=== PATIENT | female | born 1975 | race Caucasian/White ===

== ENCOUNTER 2021-02-17 12:32 | Emergency (ER) | payer OTHER, SELFPAY ==
--- NOTE | 2021-02-17 12:39 | ED.URI ---
HPI - URI/Sore Throat General Chief Complaint: Upper Respiratory Infection Stated Complaint: Sore Throat Time Seen by Provider: 02/17/21 12:56 Source: patient and RN notes reviewed Mode of arrival: ambulatory Limitations: no limitations History of Present Illness HPI Narrative: 45-year-old female presents with concern for sore throat, body aches, chills, nasal congestion and rhinorrhea, ear pain. Reports she has been taking Tylenol with little relief. Reports exposure to Covid. MD elicited complaint: sore throat Related Data Home Medications Medication Instructions Recorded Confirmed dextroamphetamine-amphetamine 02/17/21 lorazepam 02/17/21 nitrofurantoin macrocrystal 02/17/21 zolpidem PO 02/17/21 Allergies Allergy/AdvReac Type Severity Reaction Status Date / Time Penicillins AdvReac Unknown VOMITING Verified 02/17/21 13:03 Review of Systems Review of Systems: CONSTITUTIONAL: Reports malaise, fatigue. Denies chills, sweats, or fever. EYES: Denies visual changes, redness, or discharge. ENT: Reports rhinorrhea, congestion, otalgia and sore throat. CARDIOVASCULAR: Denies chest pain, palpitations, or edema. RESPIRATORY: Denies cough. Denies dyspnea. GASTROINTESTINAL: Denies abdominal pain, nausea, vomiting, diarrhea SKIN: Denies rash or itching. MUSCULOSKELETAL: Reports myalgia. NEUROLOGIC: Denies headache. All systems reviewed & are unremarkable except as noted in HPI and below PMFSH Comments At time of signature, agree with nursing past medical, surgical, social and family history. There is no relevant family history pertinent to the presenting complaint Exam Narrative: GENERAL: Well-appearing, well-nourished, and in no acute distress. HEAD: Normocephalic EYES: PERRLA, conjunctivae clear. Bilateral sclera injected ENT: Nares clear, clear discharge. Mucous membranes moist. TM pearly kasper with dull light reflex bilaterally; no tragal tenderness. Oropharynx not erythematous without lesions. Tonsils not enlarged and without exudate, no drooling, no hoarseness, no trismus, uvula midline. NECK: Supple. No lymphadenopathy CHEST: Clear to auscultation, breath sounds equal. No wheezing, rhonchi, rales, or stridor. No respiratory distress, speaks in full sentences. HEART: Regular rate and rhythm. No murmur heard. SKIN: Warm, dry, no rash. NEURO: Alert and oriented x3. PSYCH: Normal mood and affect Course Course Emergency Course: Patient is aware of diagnosis, understands and agrees to treatment plan. Anticipatory guidance given. Patient agrees to follow-up as directed and is aware of reasons to seek care at the emergency department. Portions of this record may have been created with voice recognition software Vital Signs Vital signs: Reviewed. MDM - URI/Sore Throat MDM Narrative Medical decision making narrative: Differential diagnosis considered: Pineda virus, strep pharyngitis, allergic rhinitis, upper respiratory tract infection, sinusitis, rhinosinusitis, nasopharyngitis. viral pharyngitis, otitis media, otitis externa, pneumonia, bronchitis, viral cough syndrome, viral syndrome, and influenza. Exam findings show no acute concerns or changes; patient is non-toxic appearing and is in no distress. Patient is appropriate for outpatient treatment and follow-up. Lab Data Attestation: I reviewed the patient's lab results. Critical Care Time Critical Care Time Critical Care Time: No Discharge Plan Discharge Clinical Impression: Acute viral syndrome Patient Disposition: Home, Self-Care Condition: Stable Additional Instructions: Your rapid COVID test was negative, a PCR test is being sent to the lab. If you are symptomatic, there is a high possibility your rapid test may not have detected the virus. Your negative rapid test does not rule out Covid infection, please wait for the PCR results to confirm that. Continue to isolate, wear a mask, wash your hands. Your rapid influenza test is negative Your ra
[2021-02-17 12:41] VITALS: BP 126/95; PULSE 96; RESP 16; TEMP 37.9; O2SAT 99
[2021-02-18 16:52] LABS: SARS-CoV-2 RNA PCR Negative
== END 2021-02-17 13:20 | disposition home or self-care (01) ==
PROVIDERS: Emergency Provider Nurse Practitioner
DX: B34.9 Viral infection, unspecified (principal); Z20.822 Contact with and (suspected) exposure to COVID-19
CPT/HCPCS: 87081; 87426; 87804; 87880; 99213; C9803; G0463; U0003; U0005

== ENCOUNTER 2021-07-19 12:38 | Emergency (ER) | payer OTHER, SELFPAY ==
[2021-07-19 12:42] VITALS: BP 148/98; PULSE 102; RESP 20; TEMP 36.9; O2SAT 98
--- NOTE | 2021-07-19 13:01 | ED.URI ---
HPI - URI/Sore Throat General Chief Complaint: Upper Respiratory Infection Stated Complaint: Sore Throat Time Seen by Provider: 07/19/21 13:01 Source: patient and RN notes reviewed Mode of arrival: ambulatory Limitations: no limitations History of Present Illness HPI Narrative: 45-year-old female presents with concern for sore throat, headache, fatigue for 5 days. Reports occasional cough. Reports her daughter was diagnosed with mononucleosis 1-1/2 weeks ago. Reports she has been taking Tylenol. MD elicited complaint: cough and sore throat Related Data Home Medications Medication Instructions Recorded Confirmed lorazepam 1 mg tablet 1 mg PO HS 02/17/21 07/19/21 dextroamphetamine-amphetamine 20 1 tablet PO DAILY 07/19/21 07/19/21 mg tablet dextroamphetamine-amphetamine ER 1 cap PO DAILY 07/19/21 07/19/21 30 mg 24hr capsule,extend release Allergies Allergy/AdvReac Type Severity Reaction Status Date / Time Penicillins AdvReac Unknown VOMITING Verified 07/19/21 12:57 Review of Systems Review of Systems: CONSTITUTIONAL: Report malaise, fatigue. Denies chills, sweats, or fever. EYES: Denies visual changes, redness, or discharge. ENT: Denies rhinorrhea, congestion, sinus pain, otalgia. Reports sore throat. CARDIOVASCULAR: Denies chest pain, palpitations, or edema. RESPIRATORY: Reports cough. Denies dyspnea. GASTROINTESTINAL: Denies abdominal pain, nausea, vomiting, diarrhea SKIN: Denies rash or itching. MUSCULOSKELETAL: Denies myalgia. NEUROLOGIC: Reports headache. All systems reviewed & are unremarkable except as noted in HPI and below [facility] Comments At time of signature, agree with nursing past medical, surgical, social and family history. There is no relevant family history pertinent to the presenting complaint Exam Narrative: GENERAL: Nontoxic-appearing and in no acute distress. HEAD: Normocephalic EYES: PERRLA, conjunctivae clear ENT: Nares clear. Mucous membranes moist. TM pearly kasper with sharp light reflex bilaterally; no tragal tenderness. Oropharynx erythematous without lesions. Tonsils not enlarged and without exudate, no drooling, no hoarseness, no trismus, uvula midline. NECK: Supple. No lymphadenopathy CHEST: Clear to auscultation, breath sounds equal. No wheezing, rhonchi, rales, or stridor. No respiratory distress, speaks in full sentences. HEART: Regular rate and rhythm. No murmur heard. SKIN: Warm, dry, no rash. NEURO: Alert and oriented x3. PSYCH: Normal mood and affect Course Course Emergency Course: Patient is aware of diagnosis, understands and agrees to treatment plan. Anticipatory guidance given. Patient agrees to follow-up as directed and is aware of reasons to seek care at the emergency department. Portions of this record may have been created with voice recognition software Level of Care: Express Care Visit Vital Signs Vital signs: Vital Signs Temperature 98.5 F 07/19/21 12:42 Pulse Rate 102 H 07/19/21 12:42 Respiratory Rate 20 07/19/21 12:42 Blood Pressure 148/98 H 07/19/21 12:42 Pulse Oximetry 98 07/19/21 12:42 Oxygen Delivery Room Air 07/19/21 12:42 Temperature 98.5 F 07/19/21 12:42 Pulse Rate 102 H 07/19/21 12:42 Respiratory Rate 20 07/19/21 12:42 Blood Pressure 148/98 H 07/19/21 12:42 Pulse Oximetry 98 07/19/21 12:42 Oxygen Delivery Room Air 07/19/21 12:42 Reviewed. MDM - URI/Sore Throat MDM Narrative Medical decision making narrative: Differential diagnosis considered: Pineda virus, strep pharyngitis, allergic rhinitis, upper respiratory tract infection, sinusitis, rhinosinusitis, nasopharyngitis. viral pharyngitis, otitis media, otitis externa, pneumonia, bronchitis, viral cough syndrome, viral syndrome, and influenza. Exam findings show no acute concerns or changes; patient is non-toxic appearing and is in no distress. Patient is appropriate for outpatient treatment and follow-up. Lab Data Attestation: I reviewed the ronak
== END 2021-07-19 13:20 | disposition home or self-care (01) ==
PROVIDERS: Emergency Provider Nurse Practitioner
DX: B34.9 Viral infection, unspecified (principal); F41.9 Anxiety disorder, unspecified
CPT/HCPCS: 36416; 86308; 87081; 87880; 99213; G0463

== ENCOUNTER 2022-12-29 19:18 | Emergency (ER) | payer BC, SELFPAY ==
[2022-12-29 19:25] VITALS: BP 150/99; PULSE 98; RESP 16; TEMP 36.8; O2SAT 100
[2022-12-29 19:31] VITALS: BP 150/99; PULSE 98; RESP 16; TEMP 36.8; O2SAT 100
--- NOTE | 2022-12-29 19:32 | ED.URI ---
HPI - URI/Sore Throat General Chief Complaint: Upper Respiratory Infection Stated Complaint: Headache/Sore Throat/Congestion History of Present Illness HPI Narrative: Patient presents with sore throat nasal congestion. No trouble swallowing no drooling. No shortness of breath no chest pain. Patient states she takes DayQuil NyQuil and Mucinex [id number] for her symptoms patient states her symptoms started 3 days ago. Related Data Home Medications Medication Instructions Recorded Confirmed lorazepam 1 mg tablet 1 mg PO HS 02/17/21 07/19/21 dextroamphetamine-amphetamine 20 1 tablet PO DAILY 07/19/21 07/19/21 mg tablet dextroamphetamine-amphetamine ER 1 cap PO DAILY 07/19/21 07/19/21 30 mg 24hr capsule,extend release codeine 10 mg-guaifenesin 100 mg/5 ml 12/29/22 mL oral liquid nitrofurantoin 12/29/22 monohydrate/macrocrystals 100 mg capsule valacyclovir 1 gram tablet mg 12/29/22 Allergies Allergy/AdvReac Type Severity Reaction Status Date / Time Penicillins AdvReac Unknown VOMITING Verified 07/19/21 12:57 Review of Systems Review of Systems: CONSTITUTIONAL: Denies chills, or sweats. Reports fever and generalized body aches EYES: Denies visual changes, redness, or discharge. ENT: Denies otalgia. Reports nasal congestion runny nose and sore throat CARDIOVASCULAR: Denies chest pain, palpitations, or edema. RESPIRATORY: Denies dyspnea. Reports occasional cough GASTROINTESTINAL: Denies abdominal pain, nausea, vomiting, or diarrhea. GENITOURINARY: Denies dysuria or hematuria. SKIN: Denies rash or itching. MUSCULOSKELETAL: Denies back pain, joint pain, or myalgia. Reports generalized body aches NEUROLOGIC: Denies headache, numbness, or weakness. PSYCHIATRIC: Denies anxiety or depression. PMFSH Comments At time of signature, agree with nursing past medical, surgical, social and family history. There is no relevant family history pertinent to the presenting complaint Exam Narrative: The patient is a well-developed, well-nourished in no acute distress. SKIN: Skin is warm and dry without erythema, swelling or exudate. There is good turgor. No tenting. HEAD: Atraumatic. Normocephalic. No temporal or scalp tenderness. EYES: Moist and bright. Sclera and conjunctivae normal. No discharge. PERRLA. Extraocular motions intact. Gross visual acuity intact. EARS: Pinna is normal shape and contour. Clear external auditory canals. TM pearly mclean with good cone of light, no erythema or suppuration. Bilateral cerumen noted no gross hearing deficit. NOSE: pink, moist mucosa with good air movement. Clear rhinorrhea without nasal flaring. Septum midline. Mouth: moist mucous membranes. THROAT; mild erythema noted to posterior oropharynx with moderate postnasal drainage. Without exudate or ulceration.. Uvula midline. Normal movement of soft palate. NECK: Supple and nontender with full range of motion without discomfort. No meningeal signs. LUNGS: Equal and bilateral breath sounds without wheezes, rales or rhonchi. CHEST: The chest wall is without retractions or use of accessory muscles. HEART: Has a regular rate and rhythm without murmur, gallops, click or rub. ABDOMEN: Soft, nontender with positive active bowel sounds. No rebound tenderness. EXTREMITIES: Without cyanosis, clubbing or edema. Equal 2+ distal pulses and 2 second capillary refill noted. NEUROLOGIC: alert, active, . The patient moves all extremities with normal muscle strength. Normal muscle tone is noted. Normal coordination is noted. NO focal neurological findings noted. Course Course Level of Care: Express Care Visit Vital Signs Vital signs: Vital Signs Temperature 36.8 C 12/29/22 19:25 Pulse Rate 98 12/29/22 19:25 Respiratory Rate 16 12/29/22 19:25 Blood Pressure 150/99 H 12/29/22 19:25 Pulse Oximetry 100 12/29/22 19:25 Oxygen Delivery Room Air 12/29/22 19:25 Temperature 36.8 C 12/29/22 19:31 Pulse Rate 98
== END 2022-12-29 19:42 | disposition home or self-care (01) ==
PROVIDERS: Emergency Provider Nurse Practitioner Family
DX: J06.9 Acute upper respiratory infection, unspecified (principal); Z79.899 Other long term (current) drug therapy
CPT/HCPCS: 87081; 87880; 99213; G0463

== ENCOUNTER 2023-04-07 16:57 | Emergency (ER) | payer BC, SELFPAY ==
[2023-04-07 17:07] VITALS: BP 152/99; PULSE 101; RESP 16; TEMP 37.6; O2SAT 99
[2023-04-07 17:15] VITALS: BP 152/99; PULSE 101; RESP 16; TEMP 37.6; O2SAT 99
--- NOTE | 2023-04-07 17:32 | ED.URI ---
HPI - URI/Sore Throat General Chief Complaint: Upper Respiratory Infection Stated Complaint: Body Aches/Headache/Sore Throat History of Present Illness HPI Narrative: Patient presents to the Urgent Care requesting being tested for influenza and mono. Patient states her son tested positive for influenza B last week. And patient states her employer has mono. Patient complains of sore throat no trouble swallowing no drooling generalized body aches and fatigue. No shortness of breath no chest pain. Related Data Home Medications Medication Instructions Recorded Confirmed lorazepam 1 mg tablet 1 mg PO HS 02/17/21 07/19/21 valacyclovir 1 gram tablet mg 12/29/22 dextroamphetamine-amphetamine 20 04/07/23 mg tablet dextroamphetamine-amphetamine ER PO 04/07/23 20 mg 24hr capsule,extend release nitrofurantoin 04/07/23 monohydrate/macrocrystals 100 mg capsule Allergies Allergy/AdvReac Type Severity Reaction Status Date / Time Penicillins AdvReac Unknown VOMITING Verified 04/07/23 17:03 Review of Systems Review of Systems: CONSTITUTIONAL: Denies chills, or sweats. Reports fever and generalized body aches EYES: Denies visual changes, redness, or discharge. ENT: Denies otalgia. Reports nasal congestion runny nose and sore throat CARDIOVASCULAR: Denies chest pain, palpitations, or edema. RESPIRATORY: Denies dyspnea. Reports occasional cough GASTROINTESTINAL: Denies abdominal pain, nausea, vomiting, or diarrhea. GENITOURINARY: Denies dysuria or hematuria. SKIN: Denies rash or itching. MUSCULOSKELETAL: Denies back pain, joint pain, or myalgia. Reports generalized body aches NEUROLOGIC: Denies headache, numbness, or weakness. PSYCHIATRIC: Denies anxiety or depression. PMFSH Comments At time of signature, agree with nursing past medical, surgical, social and family history. There is no relevant family history pertinent to the presenting complaint Exam Narrative: The patient is a well-developed, well-nourished in no acute distress. SKIN: Skin is warm and dry without erythema, swelling or exudate. There is good turgor. No tenting. HEAD: Atraumatic. Normocephalic. No temporal or scalp tenderness. EYES: Moist and bright. Sclera and conjunctivae normal. No discharge. PERRLA. Extraocular motions intact. Gross visual acuity intact. EARS: Pinna is normal shape and contour. Clear external auditory canals. TM pearly mclean with good cone of light, no erythema or suppuration. Bilateral cerumen noted no gross hearing deficit. NOSE: pink, moist mucosa with good air movement. Clear rhinorrhea without nasal flaring. Septum midline. Mouth: moist mucous membranes. THROAT; mild erythema noted to posterior oropharynx with moderate postnasal drainage. Without exudate or ulceration.. Uvula midline. Normal movement of soft palate. NECK: Supple and nontender with full range of motion without discomfort. No meningeal signs. LUNGS: Equal and bilateral breath sounds without wheezes, rales or rhonchi. CHEST: The chest wall is without retractions or use of accessory muscles. HEART: Has a regular rate and rhythm without murmur, gallops, click or rub. ABDOMEN: Soft, nontender with positive active bowel sounds. No rebound tenderness. EXTREMITIES: Without cyanosis, clubbing or edema. Equal 2+ distal pulses and 2 second capillary refill noted. NEUROLOGIC: alert, active, . The patient moves all extremities with normal muscle strength. Normal muscle tone is noted. Normal coordination is noted. NO focal neurological findings noted. Course Course Level of Care: Express Care Visit Vital Signs Vital signs: Vital Signs Temperature 37.6 C 04/07/23 17:07 Pulse Rate 101 H 04/07/23 17:07 Respiratory Rate 16 04/07/23 17:07 Blood Pressure 152/99 H 04/07/23 17:07 Pulse Oximetry 99 04/07/23 17:07 Oxygen Delivery Room Air 04/07/23 17:07 Temperature 37.6 C 04/07/23 17:15 Pulse Rate 101 H 04/07/23 17:15 Respiratory Rate
== END 2023-04-07 18:19 | disposition home or self-care (01) ==
PROVIDERS: Emergency Provider Nurse Practitioner Family
DX: J06.9 Acute upper respiratory infection, unspecified (principal); B97.89 Other viral agents as the cause of diseases classified elsewhere; Z20.822 Contact with and (suspected) exposure to COVID-19; Z79.899 Other long term (current) drug therapy
CPT/HCPCS: 36416; 86308; 87426; 87804; 99213; G0463